=== PATIENT | female | born 1985 | race Caucasian/White ===

== ENCOUNTER 2020-10-10 08:22 | Outpatient (REF) | payer OTHER, SELFPAY ==
[2020-10-10 08:45] LABS: COVID-19 Test Negative (Negative)
== END 2020-10-10 08:23 | disposition home or self-care (01) ==
LOC: HO.EMPCOV 08:22
PROVIDERS: Visit Provider Internal Medicine
DX: Z20.828 Contact with and (suspected) exposure to other viral communicable diseases (principal)
CPT/HCPCS: 87635; C9803